=== PATIENT | female | born 1955 | race Caucasian/White ===

== ENCOUNTER → 2016-06-02 | Outpatient (CLI) | payer BC ==
[~2016-06-02] MED LIST: ALBU8CC INH; ATOR20TA PO; AZIT250T5 PO; AZIT250T81 PO; CEFD300C PO; CHOL5POW PO; FEXO1TAB43 PO; LEVO75TA10 PO; LOSA100T3 PO; METH4TAB27 PO; MULT-35 PO; NAPR550T PO; OMEP40CA36 PO; PANT40TA3 PO
[2016-06-02 10:28] VITALS: BP 137/82
--- NOTE | 2016-06-02 10:28 | Urgent Care T Sheet Gen (E) ---
Intake General Temperature (Fahrenheit): 97.9 Pulse: 72 Blood Pressure Systolic: 137 Blood Pressure Diastolic: 82 Respirations: 20 SPO2: 98 Description of Symptoms patient presents with a 1 month history of sinus congestion, PND and headache. States she was treated with Ceftin approx 2 months ago for similar symptoms. She feels the antibiotic didn't quite alleviate the symptoms however reduced them enough to be tolerable. Over the past few days, the symptoms have worsened. Been taking Mucinex and Dasha daily. History of Present Illness Allergies: Coded Allergies: No Known Drug Allergies (Unverified , 11/03/12) Home Meds Active Scripts Cefdinir 300 Mg [id number] Mg PO BID #14 CAP Prov:OBDULIA BARRERA 08/20/15 Reported Medications Atorvastatin (Lipitor)20 Mg [id number] Mg PO DAILY 05/26/13 Cholestyramine (Cholestyramine Resin)5 Gm Powder5 Gm PO DAILY 01/10/13 Albuterol Sulfate (Ventolin HFA)90 Mcg/1 Puff Hfa.aer.ad2 Puff INH Q 4 HRS PRN 11/03/12 Losartan Potassium (Cozaar)100 Mg [id number] Mg PO DAILY 11/03/12 Pantoprazole Sod (Protonix Tab)40 Mg Tab40 Mg PO DAILY 11/03/12 Levothyroxine Sodium (Levothroid)75 Mcg Jeyrhr00 Mcg PO DAILY 11/03/12 Respiratory Constitutional Symptoms: No syptoms reported EENTM: Ear pain Nose Congestion Respiratory: No symptoms reportedNo Cough Cardiovascular: No symptoms reported Gastrointestinal/Abdominal: No symptoms reported Neurological: Headache All Other Systems Reviewed Remaining Systems: All other systems reviewed with negative findings Past Nbwzaak-Yladdv-Ndxing Hx Surgeries/Hospitalizations Hospitalization/Surgery Hx: HYSTERECTOMY, 2 C-SECTIONS, GALLBLADDER, LT SHOULDER SURG. HTN, PNEUMONIA, DVT LT LEG, THYROID PROBLEMS, HIGH CHOLESTROL, ACID REFLEX EGD 2012 Respiratory Respiratory History: Other, see comment Comment: Pneumonia history Cardiovascular Cardiovascular History: Hypertension, Deep Vein Thrombosis, Hypercholesterolemia Neuro/Muscular Neuro/Muscular History: None Reproductive System Sexually Transmitted Diseases: No Genitouinary Genitourinary History: None Gastrointestinal GI/Endocrine History: Thyroid disorder, GERD Diabetes Diabetes: No HEENT Impaired Vision: Glasses Hearing Impaired: None Integumentary Integumentary History: None Cancer History of Cancer?: No Cancer type: none Psychosocial Behavior Disorders: None Physical Exam Physical Exam General Appearance: WD/WN No apparent distress Eyes, Ears, Nose, Throat Ex: TMs normal (air fluid bubbles) Pharyngeal erythema (clear PND) Other (red, swollen nasal turbinates with thin nasal drainage. tender over frontal sinuses.) Neck Exam: SuppleNo Lymphadenopathy Respiratory Exam: Lungs clear Normal breath sounds Cardiovascular Exam: Regular rate, rhythm Departure Urgent Care Impression Impression: Primary Impression: Sinusitis Qualified Code: J01.10 - Acute frontal sinusitis, unspecified Additional Impression: Seasonal allergies Qualified Code: J30.2 - Other seasonal allergic rhinitis Departure Disposition: HOME OR SELF-CARE Condition: Stable Referrals: ADAM GRAYSON MD (PCP) Additional Instructions: I have started the patient on a Z-pack for treatment. I have also prescribed a Medrol dose pack, use as directed. This should help with nasal swelling and PND. Instructed her to continue with daily Dasha to help with drainage. May DC the Mucinex Rest. Fluids. No NSAIDs while on steroid Patient understands DC instructions. All questions were answered. Scripts Methylprednisolone (Medrol Dosepack)21 Tab/Pkt Tablet6 Tab PO DAILY Inflammation #1 PKT Ref 0 Take 6 tabs po on day 1 then decrease by 1 tab daily until packet is gone. Prov:OBDULIA BARRERA 06/02/16 Azithromycin (Zithromax Z-Yoan)6 Tab/Pkt [id number] Mg PO SEE INSTRUCTIONS #6 TAB Ref 0 Day One: Take 2 tablets by mouth Days Two-Five: Take 1 tablet by mouth Prov:OBDULIA BARRERA 06/02/16 End of report . OBDULIA BARRERA Jun 02, 2016 10:27
== END ==
LOC: MHUC 10:04
PROVIDERS: ATTEND Physician Assistant
DX: J01.10 Acute frontal sinusitis, unspecified (principal); J30.2 Other seasonal allergic rhinitis
CPT/HCPCS: 99213